=== PATIENT | female | born 1940 | race Caucasian/White ===

== ENCOUNTER → 2017-03-08 | Outpatient (CLI) | payer MEDICARE, BC ==
[~2017-03-08] MED LIST: LISINOPRIL PO; LORTAB 101 TAB 10/5 PO; OCUVITE TABLET1 TAB PO; SYNTHROID PO; TYLOX 5/500 CAP1 CAP PO; ZOCOR PO
--- NOTE | ~2017-03-08 | MY29 ---
[facility] A Service of [facility] RADIOLOGY TEXT RESULTS PATIENT: JOSE DAVID BISWAS LOCATION: [facility] : 36 UNIT #: [id number] AGE: [address]: Bryan Victoria MD SEX: F ORDER DR: [id number] [facility] [address] [place], [place] [address] [id number] O MR#: [id number] Acc #: [id number] NAME: JOSE DAVID BISWAS : 1940 SEX: F STUDY DATE/TIME: 03/08/2017 10:28 UNIT: [facility] ROOM: STUDY DESCRIPTION: MY WANDA SCREENING W/ CAD BILAT Attending Physician: Bryan Victoria Jr., M.D. Ordering Physician: Bryan Victoria Jr., M.D. Primary Care Physician: Volodymyr Gavin M.D. MEDICAL IMAGING REPORT This report is preliminary unless electronic signature is present EXAM Digital screening mammogram, 03/08/2017, [facility]. HISTORY 76-year-old woman; no risk elevation. 2 prior right breast biopsies. Annual screening. COMPARISON Mammograms date to 08/09/2007 with most recent 03/02/2016. FINDINGS Digital imaging of each breast was completed utilizing a two-view examination of each breast in craniocaudal and mediolateral-oblique projections. Review and interpretation of digital mammograms include a second review in conjunction with FDA-approved CAD device. There is a normal parenchymal presentation bilaterally consistent with the patient's age. There are no breast masses imaged and no parenchymal asymmetry is visualized. There are no suspicious microcalcifications and I see no focal architectural disturbance. NOTE: The breast parenchyma is fatty replaced IMPRESSION Negative screening digital mammogram. One-year followup recommended. Patients over the age of 40 are entered into a reminder system with target due date for the next mammogram. A result letter will also be sent to the patient. BIRADS: 1 Negative Dictated by... [facility] A Service [facility] RADIOLOGY TEXT RESULTS PATIENT: JOSE DAVID BISWAS LOCATION: [facility] : 36 UNIT #: [id number] AGE: [address]: Bryan Victoria MD SEX: F ORDER DR: Boni Partida M.D. THIS IS AN ELECTRONICALLY VERIFIED REPORT Boni Partida M.D. at 03/09/2017 8:24 AM [place] TD: 03/08/2017 17:16 JOB #: [id number] MEDICAL IMAGING REPORT Page 1 of 1 COPY
== END | disposition home or self-care (01) ==
LOC: CWCC 09:57
DX: Z12.31 Encounter for screening mammogram for malignant neoplasm of breast (principal); Z98.890 Other specified postprocedural states
CPT/HCPCS: G0202